=== PATIENT | female | born 1960 | race Caucasian/White ===

== ENCOUNTER → 2021-07-01 08:59 | Outpatient (CLI) | payer OTHER, SELFPAY | PROVIDERS: PCP Family Medicine; Visit Provider Nurse Practitioner | DX: Z20.822 Contact with and (suspected) exposure to COVID-19 (principal); U07.1 COVID-19 | CPT/HCPCS: C9803; U0003; U0005 ==

== ENCOUNTER 2025-05-16 15:10 | Emergency (ER) | payer MEDICARE, BC, SELFPAY ==
--- OUTSIDE RECORDS SUMMARY | 2019-04-13 06:45 | XMS_ITS | Encounter Summary ---
Author Organization [place] [address] Care Team Providers Care Medical Educator Name Role Phone Arabella Daniels Primary Care Provider [phone] JavedGustavo mcconnell MD Unavailable [phone] Encounter Details Date Type Department Care Team (Latest Contact Info) Description 2019 6:45 AM EDT Hospital Encounter [facility] [address] [place] [address] Left without seen Social History Tobacco Use Types Packs/Day Years Used Date Smoking Tobacco: Never Smokeless Tobacco: Never Alcohol Use Standard Drinks/Week Comments Never 0 (1 standard drink = 0.6 oz pur e alcohol) PHQ-2 Answer Date Recorded PHQ-2 Total Score 0 08/31/2024 Sexually Active Control Partners Comments Not Currently Surgical Male btl Comments No Sex and Gender Information Value Date Recorded Sex Assigned at Not on file Legal Sex Female 4:46 AM EDT Gender Identity Not on file Sexual Orientation Not on file COVID-19 Exposure Response Date Recorded In the last 10 days, have yo u been in contact with someone who was confirmed or suspected to have Coronavirus/COVID-19? No / Unsure 03/30/2023 8:02 AM EDT documented as of this encounter Functional Status * PHQ-9 Total Score Answer Date of Assessment Author 0 08/31/2024 8:08 AM Arabella Isidro RMA * Question Answer Date of Assessment Author Little interest or pleasure in doing things 0 08/31/2024 8:08 AM EST Alba Partida, RMYousif Feeling down, depressed, or hopeless 0 08/31/2024 8:08 AM EST Alba Partida, HARITHA PHQ-2 Total Score 0 08/31/2024 8:08 AM EST Alba Partida, RMYousif documented as of this encounter Plan of Treatment Upcoming Encounters Date Type Department Care Team (Late st Contact Info) Description 09/27/2025 10:30 AM EST Office Visit [facility] [address] [place] [address] Hermelindo Garcia MD [address] [place] [address] documented as of this encounter Goals Goal Patient Goal Type Associated Problems Recent Progress Patient-Stated? Author Maintain a healthy diet, exercise regularly and maintain an ideal body weight General No Panda Orozco MA documented as of this encounter Visit Diagnoses Not on filedocumented in this encounter Care Teams Medical Educator Relationship Specialty Start Date End Date Arabella Daniels [address] [place] [address] PCP - General Family Medicine 08/22/12 08/23/22 Gustavo Burt MD [address] [id number] Internal Medicine-Endocrinology, Diabetes & Metabolism 10/01/14 documented as of this encounter
--- OUTSIDE RECORDS SUMMARY | 2019-05-08 06:45 | XMS_ITS | Encounter Summary ---
Author Organization [place] [address] Care Team Providers Care Geothermal Field Technician Name Role Phone Arabella Daniels Primary Care Provider [phone] JavedGustavo mcconnell MD Unavailable [phone] Encounter Details Date Type Department Care Team (Latest Contact Info) Description 05/08/2019 6:45 AM EDT Hospital Encounter [facility] [...] EST Office Visit [facility] [address] [place] [address] Hermelindo Garcia MD [address] [place] [address] documented as of this encounter Goals Goal Patient Goal Type Associated Problems Recent Progress Patient-Stated? Author Maintain a healthy diet, exercise regularly and maintain an ideal body weight General No Panda Orozco MA documented as of this encounter Visit Diagnoses Not on filedocumented in this encounter Care Teams Geothermal Field Technician Relationship Specialty Start Date End Date Arabella Daniels [address] [place] [address] PCP - General Family Medicine 08/22/12 08/23/22 Gustavo Burt MD [address] [address] Internal Medicine-Endocrinology, Diabetes & Metabolism 10/01/14 documented as of this encounter
--- OUTSIDE RECORDS SUMMARY | 2025-03-19 10:15 | XMS_ITS | Encounter Summary ---
Author Organization [place] [address] Care Team Providers Care Batting Machine Operator Insulation Name Role Phone Gustavo Burt MD Unavailable [phone] Rashel Phelps Ud, MD Unavailable [phone] Rober Welch MD Primary Care Provider [phone] Mary Alice Rosales MD Unavailable Reason for Referral * Ultrasound (Routine) - Pending Review Specialty Diagnoses / Procedures Referred By Contshelton t Referred To Contact Radiology Diagnoses Epigastric abdominal pain Procedures US RIGHT UPPER QUADRANT Rober Welch MD [address] [place] [address] [place] [address] Phone: tel: fax: Referral ID Status Reason Start Date Expiration Date V isits Requested Visits Authorized [id number] Pending Review 03/19/2025 03/19/2026 1 1 Reason for Visit * Reason Comments Abdominal Pain Upper abdominal pain , worsened Tuesday Encounter Details Date Type Department Care Team (Late st Contact Info) Description 03/19/2025 10:15 AM EDT Office Visit [facility] [place] [address] [place] [id number] Rober Welch MD [address] [place] [address] [place] [id number] Epigastric abdominal pain (Primary Dx) Social History Tobacco Use Types Packs/Day Years [...] on file Sexual Orientation Not on file documented as of this encounter Last Filed Vital Signs Vital Sign Reading Time Taken Comments Blood Pressure 122/78 03/19/2025 10:05 AM EDT Pulse 66 03/19/2025 10:05 AM EDT Temperature 36.8 C (98.2 F) 03/19/2025 10:05 AM EDT Respiratory Rate 16 03/19/2025 10:0 5 AM EDT Oxygen Saturation 99% 03/19/2025 10: 05 AM EDT Inhaled Oxygen Concentration - - Weight 55.2 kg (121 lb 12.8 oz) 025 10:05 AM EDT Height 154.9 cm (5' 1 ) 03/19/2025 10:0 5 AM EDT Body Mass Index 23.01 03/19/2025 10:05 AM EDT documented in this encounter Progress Notes * Rober Welch MD - 03/19/2025 10:15 AM EDT Assessment & Plan 1. Epigastric pain - Symptoms include upper stomach pain, which has worsened over the past month, and floating stools without oil droplets. - Physical exam reveals tenderness in the middle of the abdomen. - Blood work will be conducted to assess pancreatic function, liver function, and electrolyte levels. A repeat ultrasound of the pancreas and gallbladder will be ordered. - Advised to follow a low-fat diet and maintain adequate hydration to manage symptoms. Assessment & Plan Epigastric abdominal pain Orders: LIPASE LEVEL; Future COMPREHENSIVE METABOLIC PANEL; Future US RIGHT UPPER QUADRANT; Future No follow-ups on file. Subjective Annia Figueroa is a 64 y.o. female Chief Complaint Patient presents with Abdominal Pain Upper abdominal pain , worsened Tuesday History of Present Illness The patient is a 64-year-old female who presents today for stomach pain. She has been experiencing intermittent upper abdominal pain for several years, which has recently become more severe and daily. The pain occasionally disrupts her sleep, particularly when she lies onher side or stomach. She recalls an episode of severe pain after consuming a pork roast dinner, which occurred within 20 minutes of eating. She reports no associated vomiting. Her stools continue to float but are not greasy as they were in the past. The color of her stools is normal, not granados or yellow. In 2013, she underwent an ultrasound of her gallbladder and pancreas due to the severity of the pain, accompanied by floating stools and the presence of oil droplets. At that time, her blood levels were slightly elevated, but she managed to cope with the condition. A colonoscopy performed a few months ago did not reveal any abnormalities. Despite taking Tums, she found no relief. Review of Systems Constitutional: Positive for activity change and fatigue. Negative for fever and unexpected weight change. Gastrointestinal: Positive for abdominal pain and nausea. Negative for blood in stool, constipation, diarrhea and vomiting. Objective Blood pressure 122/78, pulse 66, temperature 98.2 ??F (36.8 ??C), temperature source Tympanic, resp. rate 16, height 5' 1 (1.549 m), weight 121 lb 12.8 oz (55.2 kg), last menstrual period 02/02/2013, SpO2 99%, not currently . Body mass index is 23.01 kg/m??. Physical Exam Physical Exam Constitutional: General: She is not in acute distress. Appearance: She is not ill-appearing or toxic-appearing. Abdominal: General: There is no distension. Tenderness: There is abdominal tenderness. There is no right CVA tenderness, left CVA tenderness, guarding or rebound. Comments: Tenderness in the epigastric region, less tenderness on the right side. Neurological: General: No focal deficit present. Mental Status: She is alert and oriented to person, place, and time. Results The provider educated the patient (or legal medical field representative) on the use of the ambient listening artificial intelligence tool, [employer]. They were informed that this AI tool processes the conversation to generate a clinical note with the expected benefit of improved accuracy while achieving an improved encounter experience for the patient and provider.?The provider explained that the medical information captured by the AI tool including, but not limited to, diagnoses and treatment plan would be protected in accordance with applicable privacy laws and that all diagnoses and treatment decisions would be made by the provider. The provider explained that the note generated will be reviewed bythe provider for accuracy to minimize potential errors.? The patient was given an opportunity to ask questions and opt out of proceeding with the use of the AI tool. After being informed of such information, the patient (or legal medical field representative), and each individual in attendance with the patient, verbally consented to the use of the AI tool. * Christin Rivera - 03/19/2025 10:15 AM EDT Venipuncture in the right antecubital vein with 21 gauge needle, length 1 1/2 inch. documented in this encounter Plan of Treatment Upcoming Encounters Date Type Department Care Team (Late st Contact Info) Description 09/27/2025 10:30 AM EST Office Visit [facility] [address] [address] Hermelindo Garcia MD [address] [place] [address] documented as of this encounter Goals Goal Patient Goal Type Associated Problems Recent Progress Patient-Stated? Author Maintain a healthy diet, exercise regularly and maintain an ideal body weight General No Panda Orozco MA documented as of this encounter Procedures Procedure Name Priority Date/Time Associated Diagnosis Comments LIPASE LEVEL Routine 03/19/2025 10:23 AM EDT Epigastric abdominal pain COMPREHENSIVE METABOLIC PANEL Routine 03/19/2025 10:23 AM EDT Epigastric abdominal pain documented in this encounter Results * US RIGHT UPPER QUADRANT (03/26/2025 10:55 AM EDT) Anatomical Region Laterality Modality Abdomen Ultrasound 03/26/2025 10:5 5 AM EDT Impressions 03/26/2025 1:26 PM EDT Unremarkable right upper quadrant ultrasound. - Note: Radiology results need to be interpreted within a comprehensive clinical context. If you have questions about the radiology report, please contact the office of the ordering clinician. Narrative 03/26/2025 1:26 PM EDT US RIGHT UPPER QUADRANT, 03/26/2025 10:55 AM CLINICAL HISTORY: R10.13-Epigastric azgf-RID-23-CM. COMPARISON: CT 07/30/2014 PROCEDURE COMMENTS: Ultrasound examination of the right upper quadrant performed by the technologist. Sent to PACS along with tech notes for radiologist review. FINDINGS: Gallbladder: Normal. Robles's sign: Negative. Liver: Normal in size and echotexture. No focal lesion. Common bile duct: Measures 1.0 mm. (Normal is 6mm or less. If there has been cholecystectomy, normal is 10mm or less.) Pancreas: Visualized portions are normal. Other: Right kidney non-hydronephrotic. Procedure Note Walker Jimenez MD - 03/26/2025 US RIGHT UPPER QUADRANT, 03/26/2025 10:55 AM CLINICAL HISTORY: R10.13-Epigastric [id number]-CM. COMPARISON: CT 07/30/2014 PROCEDURE COMMENTS: Ultrasound examination of the right upper quadrantperformed by the technologist. Sent to PACS along with tech notes for radiologistreview. FINDINGS: Gallbladder: Normal. Robles's sign: Negative. Liver: Normal in size and echotexture. No focal lesion. Common bile duct: Measures 1.0 mm. (Normal is 6mm or less. If there hasbeen cholecystectomy, normal is 10mm or less.) Pancreas: Visualized portions are normal. Other: Right kidney non-hydronephrotic. IMPRESSION: Unremarkable right upper quadrant ultrasound. - Note: Radiology results need to be interpreted within a comprehensiveclinical context. If you have questions about the radiology report, please contactthe office of the ordering clinician. Rober Welch MD [facility] ORDERABLES Final Result * (ABNORMAL) COMPREHENSIVE METABOLIC PANEL (03/19/2025 10:23 AM EDT) Sodium 139 136 - 145 mmol/L 03/19/2025 3:43 PM EDT [facility] Potassium 5.2(H) 3.5 - 5.0 mmol/L 03/19/2025 3:43 PM EDT [facility] Chloride 104 98 - 107 mmol/L 03/19/2025 3:43 PM EDT [facility] Total CO2 25 22 - 29 mmol/L 03/19/2025 3:43 PM EDT [facility] Anion Gap 10 7 - 16 mmol/L 03/19/2025 3:43 PM EDT [facility] Calcium 9.6 8.8 - 10.4 mg/dL 03/19/2025 3:43 PM EDT [facility] Glucose Lvl 91 70 - 99 mg/dL 03/19/2025 3:43 PM EDT [facility] BUN 14 8 - 23 mg/dL 03/19/2025 3:43 PM EDT [facility] Creatinine 0.99 0.51 - 1.30 mg/dL 03/19/2025 3:43 PM EDT [facility] Albumin 4.5 3.2 - 4.6 gm/dL 03/19/2025 3:43 PM EDT [facility] Total Protein 7.2 6.4 - 8.3 gm/dL 03/19/2025 3:43 PM EDT [facility] Bili Total 1.0 0.2 - 1.3 mg/dL 03/19/2025 3:43 PM EDT [facility] ALT 10 <=41 U/L 03/19/2025 3:43 PM EDT [facility] AST 19 <=40 U/L 03/19/2025 3:43 PM EDT [facility] Alk Phos 83 36 - 123 U/L 03/19/2025 3:43 PM EDT [facility] eGFR (CKD-EPIcr 2020) 63 >=60 mL/min/1.7 3 m2 03/19/2025 3:43 PM EDT [facility] Comment:Estimated GFR was ca lculated using the CKD-EPIcr (2020) equation refit without race. The equation is recommended by the National Kidney Foundation - [place] [employer] Neph[employer] Task Force. Blood VENOUS BLOOD / Unknown Venipuncture / Unknown 03/19/2025 10:23 AM EDT 03/19/2025 10:23 AM EDT Rober Welch MD CHEMISTRY ORDERABLES Final Res ult Performing Organization Address [facility] Co de Phone Number [employer] [address] , [place] [address] * (ABNORMAL) LIPASE LEVEL (03/19/2025 10:23 AM EDT) Lipase Lvl 73(H) 13 - 60 U/L 03/19/2025 4:15 PM EDT [facility] Blood VENOUS BLOOD / Unknown Venipuncture / Unknown 03/19/2025 10:23 AM EDT 03/19/2025 10:23 AM EDT Rober Welch MD CHEMISTRY ORDERABLES Final Res ult Performing Organization Address [facility] de Phone Number [facility] [employer] [address] , [place] [id number] documented in this encounter Visit Diagnoses Diagnosis Epigastric abdominal pain- Primary Abdominal pain, epigastric Epigastric abdominal pain Abdominal pain, epigastric documented in this encounter Discontinued Medications Medication Sig Discontinue Reason Start Date End Da te sod sulf-pot chloride-mag sulf (SUTAB) 1.479-0.188- 0.225 gram Oral Tablet Take 12 Tablets by mouth Preprocedure for up to 1 dose. Take 1 kit (12 tablets twice) per physician instructions. Cancelled by 11/15/2024 03/19/2025 sodium,potassium,mag sulfates (SUPREP BOWEL PREP KIT) 17.5-3.13-1.6 gram Oral Recon SolnIndications:Scree laurita for colon cancer Take 1 kit per physician instructions Cancelled by 01/02/2025 03/19/2025 documented as of this encounter Care Teams Batting Machine Operator Insulation Relationship Specialty Start Date End Date Rober Welch MD [address] [place] [address] [place] [address] PCP - General Family Medicine 08/24/22 Gustavo Burt MD [address] [facility] [address] [place] [address] Internal Medicine-Endocrinology, Diabetes & Metabolism 10/01/14 Rashel Phelps Ud, MD [address] [place] [address] Internal Medicine-Nephrology 10/22/20 Mary Alice Rosales MD [address] [place] [address] Internal Medicine-Rheumatology 11/26/22 documented as of this encounter
--- OUTSIDE RECORDS SUMMARY | 2025-03-26 10:20 | XMS_ITS | Encounter Summary ---
Author Organization [place] [address] Care Team Providers Care Stitcher Utility Name Role Phone Gustavo Burt MD Unavailable [phone] Rashel Phelps Ud, MD Unavailable [phone] Rober Welch MD Primary Care Provider [phone] Mary Alice Rosales MD Unavailable Reason for Referral * Ultrasound (Routine) - Pending Review Specialty Diagnoses / Procedures Referred By Contac t Referred To Contact Radiology Diagnoses Epigastric abdominal pain Procedures US RIGHT UPPER QUADRANT Rober Welch MD [address] [place] [address] [place] [address] Phone: tel: fax: Referral ID Status Reason Start Date Expiration Date V isits Requested Visits Authorized [id number] Pending Review 03/19/2025 03/19/2026 1 1 Reason for Visit * Ultrasound (Routine) - Pending Review Specialty Diagnoses / Procedures Referred By Contac t Referred To Contact Radiology Diagnoses Epigastric abdominal pain Procedures US RIGHT UPPER QUADRANT Rober Welch MD [address] [place] [address] [place] [address] Phone: tel: fax: Referral ID Status Reason Start Date Expiration Date V isits Requested Visits Authorized [id number] Pending Review 03/19/2025 03/19/2026 1 1 Encounter Details Date Type Department Care Team (Latest Contact Info) Description 03/26/2025 10:20 AM EDT - 03/26/2025 11:59 PM EDT Hospital Encounter [facility] [address] [place] [address] Rober Welch MD [address] [facility] [address] [place], [place] [address] Epigastric abdominal pain Discharge Disposition: Home or Self Care Social History Tobacco Use Types Packs/Day Years [...] on file documented as of this encounter Medications at Time of Discharge acarbose (PRECOSE) 25 mg Oral TabletIndications:R eactive hypoglycemia TAKE ONE TABLET BY MOUTH THREE TIMES DAILY (WITH MEALS) 90 Tablet 1 01/15/2025 aspirin 81 mg Oral Tablet, Chewable Take 81 mg by mouth daily. EPINEPHrine (EPIPEN) 0.3 mg/0.3 mL Inj Auto-InjectorIndica tions:Bee sting allergy Inject 0.3 mL into the muscle as needed for Anaphylaxis. 2 Each 2 02/12/2025 fUROsemide (LASIX) 20 mg Oral Tablet TAKE ONE TABLET BY MOUTH ONCE 60 Tablet 09/22/2023 LEVOthyroxine (EUTHYROX) 88 mcg Oral TabletIndications:H ypothyroidism, unspecified type Take 1 Tablet by mouth daily. 90 Tablet 1 02/14/2025 pantoprazole (PROTONIX) 40 mg Oral Tablet, Delayed Release (E.C.)Indications:G astroesophageal reflux disease, unspecified whether esophagitis present Take 1 Tablet by mouth 2 times daily. 60 Tablet 11 02/12/2025 documented as of this encounter Discharge Disposition Disposition Code Departure Means Destination Home or Self Care documented in this encounter Plan of Treatment Upcoming Encounters Date Type Department Care Team (Late st Contact Info) Description 09/27/2025 10:30 AM EST Office Visit [facility] [address] [place] [address] Hermelindo Garcia MD [address] [place] [address] documented as of this encounter Goals Goal Patient Goal Type Associated Problems Recent Progress Patient-Stated? Author Maintain a healthy diet, exercise regularly and maintain an ideal body weight General No Panda Orozco MA documented as of this encounter Procedures Procedure Name Priority Date/Time Associated Diagnosis Comments US RIGHT UPPER QUADRANT Routine 03/26/2025 10:55 AM EDT Epigastric abdominal pain documented in [...] QUADRANT, 03/26/2025 10:55 AM CLINICAL HISTORY: R10.13-Epigastric quei-UXZ-06-CM. COMPARISON: CT 07/30/2014 PROCEDURE COMMENTS: Ultrasound examination [...] QUADRANT, 03/26/2025 10:55 AM CLINICAL HISTORY: R10.13-Epigastric [id number]-[id number]-CM. COMPARISON: CT 07/30/2014 PROCEDURE COMMENTS: Ultrasound examination [...] of the ordering clinician. Rober Welch MD IM US ORDERABLES Final Result documented in this encounter Visit Diagnoses Diagnosis Epigastric abdominal pain Abdominal pain, epigastric documented in this encounter Care Teams Stitcher Utility Relationship Specialty Start Date End Date Rober Welch MD [address] [place] [address] [place] [address] PCP - General Family Medicine 08/24/22 Gustavo Burt MD [address] [address] Internal Medicine-Endocrinology, Diabetes & Metabolism 10/01/14 Rashel Phelps Ud, MD [address] [place] [address] Internal Medicine-Nephrology 10/22/20 Mary Alice Rosales MD [address] [facility] [place] [address] Internal Medicine-Rheumatology 11/26/22 documented as of this encounter
--- OUTSIDE RECORDS SUMMARY | 2025-03-26 13:15 | XMS_ITS | Encounter Summary ---
Author Organization [place] [address] Care Team Providers Care Process Improvement Consultant Name Role Phone Gustavo Burt MD Unavailable [phone] Rashel Phelps Ud, MD Unavailable [phone] Rober Welch MD Primary Care Provider [phone] Mary Alice Rosales MD Unavailable Reason for Visit * Reason Comments Follow-up Encounter Details Date Type Department Care Team (Late st Contact Info) Description 03/26/2025 1:15 PM EDT Office Visit [facility] Dermatology [facility] [address] [facility] [address] [place] [address] Hermelindo Garcia MD [address] [place] [address] Encounter for screening for malignant neoplasm of skin (Primary Dx); Multiple benign melanocytic nevi; Lentigines; SK (seborrheic keratosis); Poikiloderma; History of nonmelanoma skin cancer; Arthropod bite, initial encounter; Sebaceous gland hyperplasia Social History Tobacco Use Types Packs/Day Years [...] on file documented as of this encounter Progress Notes * Hermelindo Garcia MD - 03/26/2025 1:15 PM EDT Chief Complaint: Chief Complaint Patient presents with ??? Follow-up HPI: Annia is a 64 y.o. female that is present for a 6 month fbse ( mohs Scc of left lower leg. 1 concerning spot on the rt abdomen. Recently bit my a tick. Denies fever, headaches or joint pains. She request a full skin exam. 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 Past Medical History: Past Medical History: Diagnosis Date ??? Anemia ??? Arthritis ??? Broken ankle, left, closed, initial encounter ??? Chronic headaches ??? Chronic kidney disease ??? Colon polyps ??? Depression ??? GERD (gastroesophageal reflux disease) ??? Hypothyroidism Surgical History: Past Surgical History: Procedure Laterality Date ??? BREAST BIOPSY 2006 left benign ??? CARPAL TUNNEL RELEASE 2005,2001 bilateral ??? COLONOSCOPY ??? DENTAL SURGERY 08/30/2024 root canal ??? SHOULDER SURGERY rotator cuff ??? SKIN GRAFT from [place], R thigh, L ankle ??? TUBAL LIGATION 1982 ??? UPPER GASTROINTESTINAL ENDOSCOPY Social History: Social History Tobacco Use ??? Smoking status: Never ??? Smokeless tobacco: Never Vaping Use ??? Vaping status: Never Used Substance Use Topics ??? Alcohol use: Never ??? Drug use: Never Family History: Family History Problem Relation Age of Onset ??? Diabetes Mother ??? High Blood Pressure Mother ??? Cancer Mother ??? Anemia Mother ??? Kidney Disease Mother ??? Heart Failure Mother CHF ??? Arthritis Mother ??? Heart Attack Father ??? Heart Disease Father ??? High Cholesterol Father ??? Hypertension Father ??? Stroke Father ??? High Blood Pressure Father ??? Diabetes Brother Don passed Sep 2023 due to complications, age 61 ??? Migraines Brother ??? Osteoarthritis Maternal Aunt ??? Colon Cancer Maternal Aunt ??? Cancer Maternal Aunt ??? Cancer Maternal Aunt ??? Cancer Maternal Aunt ??? Cancer Maternal Uncle ??? Anemia Maternal Grandmother ??? High Blood Pressure Sister ??? Cancer Maternal Uncle ??? Cancer Maternal Aunt ??? Arthritis Maternal Aunt ??? Cancer Maternal Aunt ??? Cancer Maternal Aunt Allergies: Allergies Allergen Reactions ??? Phenergan [Promethazine] Other (See Comments) Neurological problems Current Medications: Current Outpatient Medications Medication ??? acarbose (PRECOSE) 25 mg Oral Tablet ??? aspirin 81 mg Oral Tablet, Chewable ??? EPINEPHrine (EPIPEN) 0.3 mg/0.3 mL Inj Auto-Injector ??? fUROsemide (LASIX) 20 mg Oral Tablet ??? LEVOthyroxine (EUTHYROX) 88 mcg Oral Tablet ??? pantoprazole (PROTONIX) 40 mg Oral Tablet, Delayed Release (E.C.) No current facility-administered medications for this visit. Review of Systems: No other reported skin problems. Constitutional: no reported Fever, chills or unintended weight loss Eyes: no reported dry eyes/Sjogren's Ears/Nose/mouth/throat: no reported oral sores, no reported dry mouth C/V: no reported chest pain Resp: no reported SOB GI: no reported abd pain, no reported N/V : no reported pain with urination, no reported blood in urine M/S: no reported joint complaints, no reported arthralgias, no reported muscle weakness, no reported trouble brushing hair/standing up from seated position Neuro: no reported seizures, no reported LUQUE's Psych: no reported change in mood Endo: no reported weight gain/loss Heme/lymph: no reported easy bruising, no reported swollen glands/lymph nodes. No reported hx of clotting. Allergic/Immunologic: no reported symptoms of allergy No reported Raynaud symptoms Physical Exam: There were no vitals filed for this visit. General: WDWN: Normal Mood/Affect: Normal Orientation: Normal Examination of the following was performed and was normal, except as noted below: Psych/neuro, Scalp/hair, head/face, conjunctivae/eyelids, gums/teeth/lips, oral mucosa/tongue, Neck, axilla/chest, abdomen, back, right upper extremity, left upper extremity, Nails/digits, right lower extremity, left lower extremity, peripheral vascular and lymphatic. Please see A/P for relevant physical exam findings. - Did not perform exam of genitalia/groin/buttocks or of breasts per patient preference Diagnosis: 1. Encounter for screening for malignant neoplasm of skin 2. Multiple benign melanocytic nevi 3. Lentigines 4. SK (seborrheic keratosis) 5. Poikiloderma 6. History of nonmelanoma skin cancer 7. Arthropod bite, initial encounter 8. Sebaceous gland hyperplasia Assessment and Plan: Benign Nevi : regular, symmetrical, evenly-colored macules and papules located on the body throughout Plan: Counseling I counseled the patient regarding the following: Instructions: Monthly self-skin checks to monitor for any changes in moles are recommended. Reviewed ABCDE and Shirlene Flores warning signs and recommended evaluation if any moles change in size, shape or color; itch, burn or bleed. Recommended daily OTC sunscreen at least SPF 30 with reapplication and photoprotection measures Expectations: Benign Nevi are pigmented nests of cells within the skin. No treatment is necessary. Contact Office if: Any moles change in size, shape or color; itch, burn or bleed. Lentigines: reticulated light hampton macules in sun distribution Plan: Counseling I counseled the patient regarding the following: Skin Care: Lentigines can resolve with broad spectrum sunscreen, sun avoidance, bleaching creams, retinoids, chemical peels and laser. Expectations: Lentigines are benign pigmented lesions that occur on sun-exposed and sun-damaged skin. They are easily treatable. Seborrheic Keratoses : stuck-on, warty, greasy brown papules with pseudo-horn cysts located on the body throughout Plan: Counseling I counseled the patient regarding the following: Skin Care: Seborrheic Keratoses are benign. No treatment is necessary. Expectations: Seborrheic Keratoses are benign warty growths. Patients get more of them as they age. Poikiloderma Exam: hypopigmentation, hyperpigmentation, telangiectasias and atrophy well demarcated at sun exposed areas The patient was advised that this is a skin condition that consists of areas of hypopigmentation, hyperpigmentation, telangiectasias and atrophy. It is most frequently seen on the chest or the neck, characterized by red colored pigment on the skin that is commonly associated with sun damage. Sun protection was reviewed. Management options reviewed including observation vs topical retinoids vs IPL. Patient opted for observation at this time. History of NMSC: No evidence of recurrence, patient reassured Plan: Counseling. I counseled the patient regarding the following: Skin Care: Patients with a history of non-melanoma skin cancer should wear sunblock and sun protective clothing. Expectations: Scars from excisional sites of non-melanoma skin cancers should be monitored for any recurrences. Contact Office if: If the patient notices discoloration or a bump arising from a previously stable scar or any new lesions that are not healing. Arthropod bites Exam: edematous pink papule involving the right abdomen Reviewed diagnosis - Discussed to call if symptomatic. Sebaceous Hyperplasia : few mm, orange-yellow papules involving behind the right ear Plan: Counseling I counseled the patient regarding the following: Skin Care: Sebaceous Hyperplasia can be treated with electrodesiccation or laser. Expectations: Sebaceous Hyperplasia are benign, enlarged oil glands within the skin. Contact Office if: Sebaceous Hyperplasia fails to resolve with treatment. Skin cancer screening: - 0 concerning lesions found on examination - continue regular self skin exams and routine follow up in office as discussed - diligent photoprotective measures with daily use of SPF to face, arms/hands, exposed areas recommended Exam was performed in the presence of Mariaelena Guillen MA is acting as scribe for Hermelindo Garcia MD. Follow Up: 6 months or sooner PRN documented in this encounter Plan of Treatment Upcoming Encounters Date Type Department Care Team (Late st Contact Info) Description 09/27/2025 10:30 AM EST Office Visit [facility] [address] [facility] [address] [place] [address] Hermelindo Garcia MD [address] [place] [address] documented as of this encounter Goals Goal Patient Goal Type Associated Problems Recent Progress Patient-Stated? Author Maintain a healthy diet, exercise regularly and maintain an ideal body weight General No Panda Orozco MA documented as of this encounter Visit Diagnoses Diagnosis Encounter for screening for malignant neoplasm of skin- Primary Screening for malignant neoplasm of the skin Multiple benign melanocytic nevi Lentigines Other dyschromia SK (seborrheic keratosis) Other seborrheic keratosis Poikiloderma Other dyschromia History of nonmelanoma skin cancer Personal history of other malignant neoplasm of skin Arthropod bite, initial encounter Sebaceous gland hyperplasia Other specified disease of sebaceous glands documented in this encounter Care Teams Process Improvement Consultant Relationship Specialty Start Date End Date Rober Welch MD [address] [place] [address] [address] [place] [id number] PCP - General Family Medicine 08/24/22 Gustavo Burt MD [address] [address] Internal Medicine-Endocrinology, Diabetes & Metabolism 10/01/14 Rashel Phelps Ud, MD [address] [place] [address] Internal Medicine-Nephrology 10/22/20 Mary Alice Rosales MD [address] [place] [address] Internal Medicine-Rheumatology 11/26/22 documented as of this encounter
--- OUTSIDE RECORDS SUMMARY | 2025-04-15 10:59 | XMS_ITS | Encounter Summary ---
Author Organization [place] [address] Care Team Providers Care Generator Worker Name Role Phone Gustavo Burt MD Unavailable [phone] Rashel Phelps Ud, MD Unavailable [phone] Rober Welch MD Primary Care Provider Mary Alice Rosales MD Unavailable Reason for Visit * Nuclear Medicine (Routine) - Authorization Not Needed Specialty Diagnoses / Procedures Referred By Contac t Referred To Contact Radiology Diagnoses Abdominal pain, RUQ (right upper quadrant) Procedures NM HEPATOBILIARY W GBEF WO PHARMA NM HEPATOBILIARY W GBEF Rober Welch MD [address] [place] [address] [place] [address] Phone: tel: fax: Referral ID Status Reason Start Date Expiration Date Visits Requested Visits Authorized [id number] Authorization Not Needed 04/08/2025 04/08/2026 5 5 Encounter Details Date Type Department Care Team (Latest Contact Info) Description 04/15/2025 10:59 AM EDT - 04/15/2025 11:59 PM EDT Hospital Encounter [facility] [address] [place] [address] Rober Welch MD [address] [place] [address] [place] [address] Abdominal pain, RUQ (right upper quadrant) Discharge Disposition: Home or Self Care Social [...] 10:30 AM EST Office Visit [facility] [address] [facility] [address] [place] [id number] Hermelindo Garcia MD [address] [place] [address] documented as of this encounter Goals Goal Patient Goal Type Associated Problems Recent Progress Patient-Stated? Author Maintain a healthy diet, exercise regularly and maintain an ideal body weight General No Panda Orozco MA documented as of this encounter Procedures Procedure Name Priority Date/Time Associated Diagnosis Comments NM HEPATOBILIARY W GBEF WO PHARMA Routine 04/15/2025 12:55 PM EDT Abdominal pain, RUQ (right upper quadrant) documented in this encounter Results * NM HEPATOBILIARY W GBEF WO PHARMA (04/15/2025 12:55 PM EDT) Anatomical Region Laterality Modality Nuclear Medicine 04/15/2025 12:5 5 PM EDT Impressions 04/15/2025 12:57 PM EDT Normal hepatobiliary scan with a normal gallbladder ejection fraction. - Note: Radiology results need to be interpreted within a comprehensive clinical context. If you have questions about the radiology report, please contact the office of the ordering clinician. Narrative 04/15/2025 12:57 PM EDT NM HEPATOBILIARY WITH GBEF WO PHARMACOLOGIC AGENT, 04/15/2025 12:55 PM CLINICAL HISTORY: R10.11-Right upper quadrant [id number]. COMPARISON: None. PROCEDURE COMMENTS: Routine sequential planar hepatobiliary imaging with gallbladder ejection fraction estimation, using administration of orally administered caloric stimulant (usually Boost or Ensure) as recorded in EPIC. FINDINGS: Immediate images of the liver are normal. Normal demonstration of activity within the biliary tree, gallbladder, and small bowel. The EF is 80%. Normal is 35% or greater. Procedure Note Fernando Ontiveros MD - 04/15/2025 NM HEPATOBILIARY WITH GBEF WO PHARMACOLOGIC AGENT, 04/15/2025 12:55 PM CLINICAL HISTORY: R10.11-Right upper quadrant [id number]. COMPARISON: None. PROCEDURE COMMENTS: Routine sequential planar hepatobiliary imaging with gallbladder ejection fraction estimation, using administration of orally administered caloric stimulant (usually Boost or Ensure) as recorded inEPIC. FINDINGS: Immediate images of the liver are normal. Normal demonstration ofactivity within the biliary tree, gallbladder, and small bowel. The EF is 80%. Normal is 35% or greater. IMPRESSION: Normal hepatobiliary scan with a normal gallbladder ejection fraction. - Note: Radiology results need to be interpreted within a comprehensiveclinical context. If you have questions about the radiology report, please contactthe office of the ordering clinician. us Robre Welch MD [facility] NM ORDERABLES Final Result documented in this encounter Visit Diagnoses Diagnosis Abdominal pain, RUQ (right upper quadrant) Abdominal pain, right upper quadrant documented in this encounter Administered Medications Inactive Administered Medications - up to 1 most recent administrations Medication Order MAR Action Action Date Dose Rate Site Tc-99m mebrofenin (CHOLETEC) injection 6.2 millicurie 6.2 millicurie, Intravenous, ONCE PRN, 1 dose, Starting on Tue04/15/25 at 1114, Until Tue04/15/25 at 1115, Radiography/Imaging, Radiology Procedure, Administration dose must be within 10% of the ordered dose for radiopharmaceutical medications., Radiology Given 04/15/2025 11:15 AM EDT 6.2 millicuries documented in this encounter Orders Medications Ordered That Osito ht Not Have Been Administered Count Last Ordered Date First Ordered Date Tc-99m mebrofenin (CHOLETEC) injection 6.2 millicurie 1 04/15/2025 documented in this encounter Care Teams Generator Worker Relationship Specialty Start Date End Date Rober Welch MD [address] [place] [address] [place] [address] PCP - General Family Medicine 08/24/22 Gustavo Burt MD [address] [id number] Internal Medicine-Endocrinology, Diabetes & Metabolism 10/01/14 Rashel Phelps Ud, MD [address] [place] [address] Internal Medicine-Nephrology 10/22/20 Mary Alice Rosales MD [address] [place] [address] Internal Medicine-Rheumatology 11/26/22 documented as of this encounter
--- NOTE | 2025-05-16 15:18 | ED_ITS ---
<Statement entered by Giovana Crisostomo DO - 05/16/25 19:54> I was consulted by the MELY, and we discussed the complexity of problems being addressed. I approve the treatment and management plan for this patient's care in the emergency department, thus performing a substantial portion of the medical decision making. Giovana Crisostomo DO Discharge Plan Disposition Patient Disposition: Home, Self-Care Condition: Good Referrals Follow up/Referrals: Rober Welch MD [Primary Care Provider, Medical] - See instructions Activity Restrictions/Add. Instructions Additional Instructions/Restrictions: Please return to the emergency department with any worsening signs or symptoms. Please use your EpiPen as needed if stung by any other insect/bees. Please follow-up with your family doctor. Clinical Impressions Clinical Impression: Allergic reaction, Hx of insect sting Instructions Patient Instructions: DI for Insect Bites and Stings Print Language Print Language: Armenian Discharge ED Provider: Giovana Crisostomo General Adult HPI General Chief complaint: Allergic Reaction Stated complaint: stung by wasp,used Epi pen Time Seen by Provider: 05/16/25 15:15 Mode of Arrival: Ambulatory Source of Information: Patient Limitations: No Limitations History of Present Illness HPI narrative: 65-year-old female presents the emergency department after a wasp/insect sting to the right elbow, patient states that she has a family history of anaphylactic reaction, no personal history of anaphylactic reaction, been stung previously on the left knee, has been told to utilize EpiPen's , after every sting, patient was found today on the right elbow call, with EMS and who advised her to take EpiPen, patient was stung approxione 40 5 PM, took her EpiPen within 1 minute , patient denies any fever chills chest pain shortness of breath airway compromise, no nausea no vomiting no constipation no diarrhea, admits to pruritus around the area, no other area of erythema or rash, patient has urinary test intact, patient has past medical history consistent with hypothyroidism/GERD, initial triage vitals are unremarkable. Please note that above description of symptoms, in this electronic medical record under categorization of recalled from ER triage doctor by RN are reflective of an initial nursing assessment, however, is not reflective of my full history and physical exam that was personally taken and clarified. Consequentially, this preceding description of symptoms, which may include the patient's categorized chief complaint in the EMR, do not reflect my personal clinical impression, and the ultimate description of history of present illness and patient stated complaints should be deferred to this section of the note. Unless stated otherwise or congruent with this section of the note, additional signs, symptoms, or incongruence should be interpreted as inaccurate with my clinical impression. Onset (ago): hour(s) Related Data Allergies Allergy/AdvReac Type Severity Reaction Status Date / Time promethazine (From Phenergan) Allergy Other Verified 05/16/25 15:38 PFSH [facility] Disclaimer: The information contained in this section may have been updated after the patient was seen, as this information can be updated by other users. Social History Smoking Status: Never smoker alcohol intake: never current occupational status: other Travel in the last 8 weeks?: None ROS Obtained: Yes All systems reviewed & no additional complaints except as documented Physical Exam General General appearance: alert and in no apparent distress Head Head exam: atraumatic and normocephalic Eye Eye exam: Present PERRL and EOMI ENT ENT exam: Present mucous membranes moist Neck Neck exam: Present normal inspection Chest Chest inspection: Present normal inspection and symmetric chest wall rise Respiratory Respiratory exam: Present normal lung sounds bilaterally; Absent respiratory distress Cardiovascular Cardiovascular exam: Present regular rate and normal rhythm Abdominal Exam Abdominal exam: Present soft; Absent tenderness Extremities Exam Extremities exam: Present normal inspection Neurological Exam Neurological exam: Present alert and oriented X3 Psychiatric Psychiatric exam: Present normal affect Skin Skin exam: Present warm, dry, erythema and other (Minimal area of erythema to the right elbow, no urticaria,) Medical Decision Making Medical Records Medical records reviewed: Yes I reviewed the patient's medical records. Screening: Per USPSTF and CDC recommendations, given the prevalence of disease in our region, it is our hospital?s policy to screen for HIV and viral Hepatitis for all patients aged 18 and over and those with ongoing risk factors. Igor Inquiry Pt receiving controlled substance: No Vital Signs: 05/16/25 15:27 05/16/25 15:34 Temperature 98.1 F 98.1 F Temperature Source Oral Oral Pulse Rate 85 Pulse Rate [Right] 85 Respiratory Rate 16 16 Blood Pressure 151/89 H Blood Pressure [Left Arm] 151/89 H Blood Pressure Mean [Left Arm] 109 Blood Pressure Source Automatic Cuff Blood Pressure Source [Left Arm] Automatic Cuff Blood Pressure Position Supine Blood Pressure Position [Left Arm] Supine 02 Sat by Pulse Oximetry 97 97 Oxygen Delivery Method Room Air Room Air Medical Decision Narrative: 65-year-old female presents the emergency department with a wasp sting, see HPI for detail past medical history. I discussed this patient's case with the attending physician Dr. Crisostomo she saw and examined the patient as well. Low concern for angioedema/anaphylaxis, local bee sting/insect bite reaction, patient's already taken epi pen approximately 2 hours ago, will monitor patient the emergency department for 1 hour for any other signs or symptoms concerning for acute allergic reaction/anaphylaxis. Patient voiced understanding and agreed with current treatment plan. She is hemodynamically stable upon initial examination. Reexamination of the patient after 3-hour observation period, patient has remained hemodynamically stable throughout her time in the emergency department, no airway Carmize, no shortness of breath, no other acute signs or symptoms. Patient given strict ED return precautions, patient voiced understanding and agreement with the current treatment plan/discharge plan, she has EpiPen's available at home for any other acute symptomatology. Critical Care Critical Care Time Critical Care Time: No
[2025-05-16 15:27] VITALS: BP 151/89; PULSE 85; RESP 16; TEMP 36.7; O2SAT 97; BMI 22.6
--- OUTSIDE RECORDS SUMMARY | 2025-05-16 15:30 | XMS_ITS | Encounter Summary ---
Author Organization [place] [address] Care Team Providers Care Meteorological Aide Name Role Phone Gustavo Burt MD Unavailable [phone] Rashel Phelps Ud, MD Unavailable [phone] Garry Welch MD Primary Care Provider Mary Alice Rosales MD Unavailable Reason for Visit * Reason Onset Date Comments Symptoms (Only Use If Pt Pushes Back On Scheduli ng A Visit) 05/16/2025 Wasp sting Encounter Details Date Type Department Care Team (Late st Contact Info) Description 05/16/2025 Nurse Triage SEP [facility] [address] [place] [id number] Garry Welch MD [address] [place] [address] JE[place]ETH BELLO [address] Social History Tobacco Use Types Packs/Day Years [...] on file documented as of this encounter Miscellaneous Notes * Telephone Encounter - Alba Partida RMA - 05/16/2025 3:20 PM EDT I called pt lmtcb , I contacted her she went to the ER * Telephone Encounter - Garry Welch MD - 05/16/2025 3:15 PM EDT Would recommend going to the ER for observation or waiting in the ER waiting room in the event of asevere allergic reaction. We only have 1 EpiPen on hand and if she had a severe anaphylactic reaction we have limited supplies to respond to her needs as opposed to an emergency room setting * Telephone Encounter - Alba Partida RMA - 05/16/2025 3:09 PM EDT Advice ? * Telephone Encounter - Lenore Sims RN - 05/16/2025 2:20 PM EDT Nurse Triage Call -Chief Complaint: stung by wasp 1347 & used epi called 911 declined ED. -Reported by: Patient -Vitals: No vitals obtained on this call -Disposition per protocol: Call 911 -Follow up/Concerns: Pt will go to ED. Reason for Disposition Life-threatening reaction in past to sting (anaphylaxis) and < 2 hours since sting Protocols used: Bee or Yellow Jacket Sting-A-OH * Telephone Encounter - Juan F Hightower CCMA - 05/16/2025 2:17 PM EDT Select the most appropriate reason for this telephone message: Symptoms Call Who is reporting the symptoms: Patient What symptom(s) is the patient experiencing: stung by a wasp today. Highly allergic. She called squad. They wanted her to go to the er. She declined. She wants to know if she can just sit in the office waiting room and have the front end ui developer keep an eye on her just in case the epi pen wears off. How long have symptoms been present: today Has the patient been seen for this:No If no, was an appointment/E-Visit offered/suggested? No, Sentto Triage Has the patient tried anything to relieve the symptoms and did it help: Yes epi pen If pain, what level on scale 1-10 (10 being the greatest): No pain Desired Outcome: Advice Pharmacy & Location:n/a Return Method of Communication: Phone Call Was patient transferred to Nurse Triage for additional help? Yes (remember to route this message [facility] Nurse Triage [place] # [id number]) Additional Information: N/A documented in this encounter Plan of Treatment Upcoming Encounters Date Type Department Care Team (Late st Contact Info) Description 09/27/2025 10:30 AM EST Office Visit SEP Dermatology [facility] [address] [phone] Hermelindo Garcia MD [address] [place] [address] documented as of this encounter Goals Goal Patient Goal Type Associated Problems Recent Progress Patient-Stated? Author Maintain a healthy diet, exercise regularly and maintain an ideal body weight General No Panda Orozco MA documented as of this encounter Visit Diagnoses Not on filedocumented in this encounter Care Teams Meteorological Aide Relationship Specialty Start Date End Date Garry Welch MD [address] [facility] [place] [address] PCP - General Family Medicine 08/24/22 Gustavo Burt MD [address] [phone] Internal Medicine-Endocrinology, Diabetes & Metabolism 10/01/14 Rashel Phelps Ud, MD [address] [place] [address] Internal Medicine-Nephrology 10/22/20 Mary Alice Rosales MD [address] [place] [address] Internal Medicine-Rheumatology 11/26/22 documented as of this encounter
--- OUTSIDE RECORDS SUMMARY | 2025-05-16 15:30 | XMS_ITS | Encounter Summary ---
Author Organization [facility] Address [address] [place] [address] Care Team Providers Care Senior Catering Sales Manager Name Role Phone Gustavo Burt MD Unavailable [phone] Rashel Phelps Ud, MD Unavailable [phone] Rober Welch MD Primary Care Provider [phone] Mary Alice Rosales MD Unavailable Encounter Details Date Type Department Care Team (Late st Contact Info) Description 02/05/2025 Results Follow-Up [facility] [address] [place] [address] Jakub Lorenzo MD [address] [place] [address] [facility] ORDER Social History Tobacco Use Types Packs/Day Years [...] on file documented as of this encounter Plan of Treatment Upcoming Encounters Date Type Department Care Team (Late st Contact Info) Description 09/27/2025 10:30 AM EST Office Visit SEP Dermatology [facility] [address] [place] [address] Hermelindo Garcia MD [address] [facility], [place] [id number] documented as of this encounter Goals Goal Patient Goal Type Associated Problems Recent Progress Patient-Stated? Author Maintain a healthy diet, exercise regularly and maintain an ideal body weight General No Panda Orozco MA documented as of this encounter Visit Diagnoses Not on filedocumented in this encounter Care Teams Senior Catering Sales Manager Relationship Specialty Start Date End Date Rober Welch MD [address] [place] [address] PCP - General Family Medicine 08/24/22 Gustavo Burt MD [address] [facility] [address] [place] [address] Internal Medicine-Endocrinology, Diabetes & Metabolism 10/01/14 Rashel Phelps Ud, MD [address] [place] [address] Internal Medicine-Nephrology 10/22/20 Mary Alice Rosales MD [address] [facility] [place] [address] Internal Medicine-Rheumatology 11/26/22 documented as of this encounter
--- OUTSIDE RECORDS SUMMARY | 2025-05-16 15:30 | XMS_ITS | Encounter Summary ---
Author Organization [place] [address] Care Team Providers Care Animal Care Service Worker Name Role Phone Gustavo Burt MD Unavailable [phone] Rashel Phelps Ud, MD Unavailable [phone] Garry Welch MD Primary Care Provider [phone] Mary Alice Rosales MD Unavailable Encounter Details Date Type Department Care Team (Latest Contact Info) Description 04/15/2025 Results Follow-Up SEP Bry [facility] [place] [phone] Garry Welch MD [address] [place] [address] [place] [address] [place] [facility] Social History Tobacco Use Types Packs/Day Years [...] as of this encounter Progress Notes * Garry Welch MD - 04/15/2025 1:03 PM EDT Her HIDA scan was normal, if she is still having pain please let me know and I will refer her to GI documented in this encounter Plan of Treatment Upcoming Encounters Date Type Department Care Team (Late st Contact Info) Description 09/27/2025 10:30 AM EST Office Visit SEP Dermatology [facility] [address] [place] [address] Hermelindo Garcia MD [address] [facility] [place] [id number] documented as of this encounter Goals Goal Patient Goal Type Associated Problems Recent Progress Patient-Stated? Author Maintain a healthy diet, exercise regularly and maintain an ideal body weight General No Panda Orozco MA documented as of this encounter Visit Diagnoses Not on filedocumented in this encounter Care Teams Animal Care Service Worker Relationship Specialty Start Date End Date Garry Welch MD [address] [place] [address] [place] [address] PCP - General Family Medicine 08/24/22 Gustavo Burt MD [address] [facility] [address] [place] [address] Internal Medicine-Endocrinology, Diabetes & Metabolism 10/01/14 Rashel Phelps Ud, MD [address] [place] [address] Internal Medicine-Nephrology 10/22/20 Mary Alice Rosales MD [address] [place] [address] Internal Medicine-Rheumatology 11/26/22 documented as of this encounter
--- OUTSIDE RECORDS SUMMARY | 2025-05-16 15:30 | XMS_ITS | Encounter Summary ---
Author Organization [place] [address] Care Team Providers Care Health Psychologist Name Role Phone Gustavo Burt MD Unavailable [phone] Rashel hPelps Ud, MD Unavailable [phone] Rober Welch MD Primary Care Provider Mary Alice Rosales MD Unavailable Encounter Details Date Type Department Care Team (Late st Contact Info) Description 04/08/2025 Orders Only SEP Bry [facility] [place] [phone] Rober Welch MD [address] [place] [address] [address] [place] JE[place] [address] Abdominal pain, RUQ (right upper quadrant) (Primary Dx) Social History Tobacco Use Types [...] EST Office Visit SEP Dermatology [facility] [address] [place] [phone] Hermelindo Garcia MD [address] [place] [facility] [address] [place] [facility], [place] [id number] documented as of this encounter Goals Goal Patient Goal Type Associated Problems Recent Progress Patient-Stated? Author Maintain a healthy diet, exercise regularly and maintain an ideal body weight General No Panda Orozco MA documented as of this encounter Visit Diagnoses Diagnosis Abdominal pain, RUQ (right upper quadrant)- Primary Abdominal pain, right upper quadrant documented in this encounter Care Teams Health Psychologist Relationship Specialty Start Date End Date Rober Welch MD [address] [place] [address] [place] [address] PCP - General Family Medicine 08/24/22 Gustavo Burt MD [address] [facility] [address] [place] [address] Internal Medicine-Endocrinology, Diabetes & Metabolism 10/01/14 Rashel Phelps Ud, MD [address] [place] [address] Internal Medicine-Nephrology 10/22/20 Mary Alice Rosales MD [address] [facility] [address] Internal Medicine-Rheumatology 11/26/22 documented as of this encounter
--- OUTSIDE RECORDS SUMMARY | 2025-05-16 15:30 | XMS_ITS | Encounter Summary ---
Author Organization [facility] [place] [address] Care Team Providers Care Train Planner Name Role Phone Gustavo Burt MD Unavailable [phone] Rashel Phelps Ud, MD Unavailable [phone] Garry Welch MD Primary Care Provider [phone] Mary Alice Rosales MD Unavailable Encounter Details Date Type Department Care Team (Latest Contact Info) Description 03/25/2025 Travel Social History Tobacco Use Types Packs/Day Years [...] 10:30 AM EST Office Visit SEP Dermatology [facility] [address] [facility] [address] [place] [address] Hermelindo Garcia MD [address] [place] [address] documented as of this encounter Goals Goal Patient Goal Type Associated Problems Recent Progress Patient-Stated? Author Maintain a healthy diet, exercise regularly and maintain an ideal body weight General No Panda Orozco MA documented as of this encounter Visit Diagnoses Not on filedocumented in this encounter Care Teams Train Planner Relationship Specialty Start Date End Date Garry Welch MD [address] [place] [address] [place] [address] PCP - General Family Medicine 08/24/22 Gustavo Burt MD [address] [facility] [address] [place] [address] Internal Medicine-Endocrinology, Diabetes & Metabolism 10/01/14 Rashel Phelps Ud, MD [address] [place] [address] Internal Medicine-Nephrology 10/22/20 Mary Alice Rosales MD [address] [place] [address] Internal Medicine-Rheumatology 11/26/22 documented as of this encounter
--- OUTSIDE RECORDS SUMMARY | 2025-05-16 15:30 | XMS_ITS | Encounter Summary ---
Author Organization [place] [address] Care Team Providers Care Parts Expediter Name Role Phone Gustavo Burt MD Unavailable [phone] Rashel Phelps Ud, MD Unavailable [phone] Garry Welch MD Primary Care Provider Mary Alice Rosales MD Unavailable Encounter Details Date Type Department Care Team (Latest Contact Info) Description 03/19/2025 Results Follow-Up SEP Bry [facility] [place] [phone] Garry Welch MD [address] [place] [address] [address] [place] [address] LIPASE LEVEL, COMPREHENSIVE METABOLIC PANEL, RIGHT UPPER QUADRANT Social History Tobacco Use Types Packs/Day Years [...] Progress Notes * Garry Welch MD - 03/26/2025 1:33 PM EDT Her right upper quadrant ultrasound was normal. Gallbladder was normal with no gallstones. If she still having issues with upset stomach let me know and we can order a HIDA scan to test her gallbladder functioning * Garry Welch MD - 03/19/2025 4:18 PM EDT Her lipase level was elevated concerning for pancreatitis. Would recommend that she follow a low-fat diet for the next few days and drink plenty of fluids like we discussed at today's visit. Her potassium was borderline elevated. Would recommend she avoid high potassium foods such as bananas, nuts,or berries. Again drinking plenty water is helpful. Her liver enzymes were otherwise normal. She can follow-up with the ultrasound like we discussed to make sure there is no gallbladder involvement contributing to her pancreatitis. The symptoms should gradually improve over the next few days as long as she follows a low-fat diet documented in this encounter Plan of Treatment Upcoming Encounters Date Type Department Care Team (Late st Contact Info) Description 09/27/2025 10:30 AM EST Office Visit SEP Dermatology [facility] [address] [place] [address] [phone] Hermelindo Garcia MD [address] [place] [address] documented as of this encounter Goals Goal Patient Goal Type Associated Problems Recent Progress Patient-Stated? Author Maintain a healthy diet, exercise regularly and maintain an ideal body weight General No Panda Orozco MA documented as of this encounter Visit Diagnoses Not on filedocumented in this encounter Care Teams Parts Expediter Relationship Specialty Start Date End Date Garry Welch MD [address] [place] [address] [place] [address] PCP - General Family Medicine 08/24/22 Gustavo Burt MD [address] [facility] [address] [place] [address] Internal Medicine-Endocrinology, Diabetes & Metabolism 10/01/14 Rashel Phelps Ud, MD [address] [place] [address] Internal Medicine-Nephrology 10/22/20 Mary Alice Rosales MD [address] [place] [address] Internal Medicine-Rheumatology 11/26/22 documented as of this encounter
--- OUTSIDE RECORDS SUMMARY | 2025-05-16 15:30 | XMS_ITS | Clinical Summary ---
Author Organization [facility] Address [address] [place] [address] Phone Care Team Providers Care Employment Adjudicator Name Role Phone Gustavo Burt MD Unavailable [phone] Rashel Phelps Ud, MD Unavailable [phone] Garry Welch MD Primary Care Provider [phone] Mary Alice Rosales MD Unavailable Allergies Active Allergy Reactions Criticality Noted Date Comments Promethazine Other (See Comments) Medium 08/22/2012 Neurological problems Medications aspirin 81 mg Oral Tablet, Chewable Take 81 mg by mouth daily. Active fUROsemide (LASIX) 20 mg Oral Tablet TAKE ONE TABLET BY MOUTH ONCE 60 Tablet 09/22/2023 Active acarbose (PRECOSE) 25 mg Oral TabletIndications :Reactive hypoglycemia TAKE ONE TABLET BY MOUTH THREE TIMES DAILY (WITH MEALS) 90 Tablet 1 01/15/2025 Active EPINEPHrine (EPIPEN) 0.3 mg/0.3 mL Inj Auto-InjectorIndi cations:Bee sting allergy Inject 0.3 mL into the muscle as needed for Anaphylaxis . 2 Each 2 02/12/2025 Active pantoprazole (PROTONIX) 40 mg Oral Tablet, Delayed Release (E.C.)Indications :Gastroesophageal reflux disease, unspecified whether esophagitis present Take 1 Tablet by mouth 2 times daily. 60 Tablet 11 02/12/2025 Active LEVOthyroxine (EUTHYROX) 88 mcg Oral TabletIndications :Hypothyroidism, unspecified type Take 1 Tablet by mouth daily. 90 Tablet 1 02/14/2025 Active Active Problems Problem Noted Date Diagnosed Date Chronic left shoulder pain 12/08/2022 Osteopenia of the elderly 11/25/2022 Overview (11/25/2022): - postmenopausal - DEXA scan 2017 normal - DEXA scan 03/17- showed osteopenia, We did discuss primary treatment measures of dietary calcium, Vitamin D, and the importance of weight bearing and aerobic exercise. We discussed that her target calcium dietary intake should be 1200mg per day, to use supplements as needed not to exceed 300mg per dose. We discussed that her target Vitamin D level should be > 32, to use Vitamin D supplements (2000 IU of Vitamin D3 per day) as needed to reach her target dose. Thumb pain, left 11/25/2022 Overview (11/25/2022): - symptoms improved with steroid injection and PT - continue thumb brace, tylenol upto 4000 mg PRN daily and diclofenac gel QID PRN Chronic arthritis 11/25/2022 emt intermediate current use of systemic steroids 11/25 Overview (06/28/2024): # Injections - left 1 [facility]- kenalog 20 mg- 03/08/22 - left 1 [facility] -kenalog 20 mg- 06/28/24 The risks of corticosteroids were reviewed by me with the patient, including (but not limited to) weight gain, osteoporosis acceleration, bone fractures, a-vascular necrosis, elevated blood sugars, and cataract acceleration. Encounter for medication monitoring 11/25/2022 Overview (11/25/2022): - The risks of corticosteroids were reviewed by me with the patient, including (but not limited to) weight gain, osteoporosis acceleration, bone fractures, a- vascular necrosis, elevated blood sugars, and cataract acceleration. A medication information sheet from the [place] [employer] (ACR) was provided. # Monitoring parameters - DEXA scan- Osteopenia 03/11/22 History of adenomatous polyp of colon 07/14/2022 Echeverria's esophagus without dysplasia 12/16/2021 Gastroesophageal reflux dise ase with esophagitis without hemorrhage 12/16/2021 Assessment & Plan (08/31/2024 9:03 AM EST): Orders: COMPREHENSIVE METABOLIC PANEL; Future CBC WITH DIFF; Future Asymptomatic at this time, well controlled with medication Atrophic gastritis without hemorrhage 12/16/2021 Family history of colon cancer 12/16/2021 Diffuse spasm of esophagus 12/18/2019 History of colonic polyps 12/18/2019 Assessment & Plan (08/31/2024 9:03 AM EST): Patient informed she is due for colonoscopy in spring; will schedule with GI sometime in spring 2024 when due Vitamin D deficiency 02/27/2014 Overview (02/27/2014): Followed by Endocrinology. 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 Hypothyroidism 08/22/2012 Overview (02/27/2014): Followed by Endocrinology. Assessment & Plan (08/31/2024 9:03 AM EST): Orders: COMPREHENSIVE METABOLIC PANEL; Future TSH REFLEX; Future LIPID PANEL REFLEX; Future Asymptomatic at this time, feels well controlled on medications -Follow-up thyroid labs for further adjustments Resolved Problems Problem Noted Date Diagnosed Date Resolved Date Adenomatous polyp of colon 12/16/2021 1 11/01/2023 Family history of colonic polyps 12/16/2021 08/31/2024 Polyp of colon 12/18/2019 08/31/2024 Encounters Date Type Department Care Team Description 05/16/2025 Telephone [facility]P [facility] [address] [place] [phone] Garry Welch MD Patient Returning Call (Informed of PCP message ) 05/16/2025 Nurse Triage SEP [facility] [address] [place] [phone] Garry Welch MD 04/15/2025 10:59 AM EDT - 04/15/2025 11:59 PM EDT Hospital Encounter [facility] [address] [place] [address] Garry Welch MD Abdominal pain, RUQ (right upper quadrant) Discharge Disposition: Home or Self Care 04/15/2025 Results Follow-Up [address] [place] [phone] Garry Welch MD NM HEPATOBILIARY W GBEF WO PHARMA 04/08/2025 Orders Only [address] [place] [phone] Garry Welch MD Abdominal pain, RUQ (right upper quadrant) (Primary Dx) 03/26/2025 1:15 PM EDT Office Visit [facility] [address] [place] [address] Hermelindo Garcia MD Encounter for screening for malignant neoplasm of skin (Primary Dx); Multiple benign melanocytic nevi; Lentigines; SK (seborrheic keratosis); Poikiloderma; History of nonmelanoma skin cancer; Arthropod bite, initial encounter; Sebaceous gland hyperplasia 03/26/2025 10:20 AM EDT - 03/26/2025 11:59 PM EDT Hospital Encounter [facility] [address] [place] [address] Garry Welch MD Epigastric abdominal pain Discharge Disposition: Home or Self Care 03/25/2025 Travel 03/19/2025 10:15 AM EDT Office Visit [facility] [address] [place] [phone] Garry Welch MD Epigastric abdominal pain (Primary Dx) 03/19/2025 Results Follow-Up [address] [place] [phone] Garry Welch MD LIPASE LEVEL, COMPREHENSIVE METABOLIC PANEL, RIGHT UPPER QUADRANT 02/14/[address] [facility] [address] [place] [address] Gustavo Burt MD Medication Refill from Last 3 Months Surgical History Surgery Date Site/Laterality Comments SHOULDER SURGERY rotator cuff CARPAL TUNNEL RELEASE bilateral BREAST BIOPSY 09/26/2005 - 09/25/2006 left benign SKIN GRAFT from [facility], R thigh, L ankle TUBAL LIGATION 1983 DENTAL SURGERY 08/30/2024 root canal COLONOSCOPY UPPER GASTROINTESTINAL ENDOSCOPY Medical History Medical History Date Comments Hypothyroidism Chronic headaches Depression Colon polyps Anemia Broken ankle, left, closed, initial encounter Arthritis GERD (gastroesophageal reflux disease) Chronic kidney disease Family History Medical History Relation Name Comments Diabetes Brother Sonu Ascencio passed Sep 2023 due to complications, age 61 Migraines Brother Sonu Arellano Heart Attack Father Sonu Arellano Heart Disease Father Sonu Arellano High Blood Pressure Father Sonu Arellano High Cholesterol Father Sonu Arellano Hypertension Father Sonu Arellano Stroke Father Sonu Arellano Colon Cancer Maternal Aunt 1 Erin Brookens Osteoarthritis Maternal Aunt 1 Erin Brookens Cancer Maternal Aunt 2 Anni Diffenderfer Cancer Maternal Aunt 3 Erin Holtry Cancer Maternal Aunt 4 Rachel Cancer Maternal Aunt 5 Anni Diffenderfer Arthritis Maternal Aunt 6 Erin Holtry Cancer Maternal Aunt 6 Erin Holtry Cancer Maternal Aunt 7 Rachel Anemia Maternal Grandmother Phoebe Brookens Cancer Maternal Uncle 1 Ed Brookens Cancer Maternal Uncle 2 Ed Brookens Anemia Mother Tiara Knisely Arthritis Mother Tiara Knisely Cancer Mother Tiara Knisely Diabetes Mother Tiara Knisely Heart Failure Mother Tiara Knisely CHF High Blood Pressure Mother Tiara Knisely Kidney Disease Mother Tiara Knisely High Blood Pressure Sister Joan Carvalho Relation Name Status Comments Brother Sonu Arellano Father Sonu Arellano Maternal Aunt 1 Erin Brookens Maternal Aunt 2 Anni Diffenderfer Maternal Aunt 3 Erin Holtry Maternal Aunt 4 Rachel Maternal Aunt 5 Anni Diffenderfer Alive Maternal Aunt 6 Erin Holtry Alive Maternal Aunt 7 Rachel Alive Maternal Grandmother Phoebe Brookens Maternal Uncle 1 Ed Brookens Maternal Uncle 2 Ed Brookens Alive Mother Tiara Knisely Sister Joan Sanchezl Social History Tobacco Use Types Packs/Day Years Used Date Smoking Tobacco: Never Smokeless Tobacco: Never Tobacco Cessation:Counseling Given: Not Answered Alcohol Use Standard Drinks/Week Comments Never 0 [...] on file Sexual Orientation Not on file Obstetrics History Para Term AB IAB SAB Ectopic Multiple Livin g Live Births 2 2 1 2 2 Date Outcome GA Total Labor Labor/2nd/3rd Weight Sex Type Anes PTL Radha A1 A5 Name Clin Para Vag-S pont N Living Complications:None Term Vag-S pont N Living Complications:None Last Filed Vital Signs Vital Sign Reading [...] Mass Index 23.01 03/19/2025 10:05 AM EDT Plan of Treatment Upcoming Encounters Date Type Department Care Team (Late st Contact Info) Description 09/27/2025 10:30 AM EST Office Visit [facility] D[facility]at[facility] [address] [address] Hermelindo Garcia MD [address] [place] [address] Health Maintenance Due Date Last Done Comments Wellness Exam Medicare 1963 Cologuard 2005 FIT 2005 Sigmoidoscopy 2005 Virtual Colonography 2005 Pneumococcal Vaccine 50+ (1 of 1 - PCV) 2010 Zoster (1 of 2) 2010 COVID-19 Vaccine ( season) 2024 01/26/2021, 12/29/2020 Influenza Vaccine (#1) 2025 Breast Cancer Screening 05/15/2026 05/15/20, 03/30/2023, 03/11/2022, Additional history exists Pap Smear 09/07/2027 09/07/2024, 05/27, 02/06/2019, Additional history exists Cervical Cancer Screening 09/07/2029 HPV/Pap Cotest 09/07/2029 09/07/2024 Colon Cancer Screening 01/24/2030 Colonoscopy 01/24/2030 01/25/2025, 12/18/2019 DTaP/TDaP/Td (2 - Td or Tdap) 02/19/2032 02/18/2022 Hepatitis C Screening Completed 08/24/2022 Bone Density Screening Completed , 03/11/2022, 06/20/2018 Hepatitis B Vaccine Aged Out No longe r eligible based on patient's age to complete this topic Meningococcal B Vaccine Aged Out No l onger eligible based on patient's age to complete this topic Goals Goal Patient Goal Type Associated Problems Recent Progress Patient-Stated? Author Maintain a healthy diet, exercise regularly and maintain an ideal body weight General No Panda Orozco, PURNIMA Procedures Procedure Name Priority Date/Time Associated Diagnosis Comments NM HEPATOBILIARY W GBEF WO PHARMA Routine 04/15/2025 12:55 PM EDT Abdominal pain, RUQ (right upper quadrant) US RIGHT UPPER QUADRANT Routine 03/26/2025 10:55 AM EDT Epigastric abdominal pain COMPREHENSIVE METABOLIC PANEL Routine 03/19/2025 10:23 AM EDT Epigastric abdominal pain LIPASE LEVEL Routine 03/19/2025 10:23 AM EDT Epigastric abdominal pain COLONOSCOPY Routine 01/25/2025 9:23 AM EDT History of adenomatous polyp of colon POSTAL TRANSPORTATION CLERK CYTOLOGY REQUEST (PAP ONLY) Routine 09/07/2024 9:13 AM EST Pap smear for cervical cancer screening MM MAMMO DIGITAL ANTONIA SCREEN BILAT Routine 05/15/2024 9:59 AM EDT Encounter for screening mammogram for malignant neoplasm of breast DX BONE DENSITY AXIAL SKELETON Routine 03/24/2023 8:47 AM EDT Osteopenia of the elderly Post-menopausal HCV ANTIBODY SCREEN W/ REFLEX Routine 08/24/2022 2:42 PM EST Need for hepatitis C screening test from Last 3 Months or Most Recently Relevant to Health Maintenance Results * NM HEPATOBILIARY W GBEF WO [...] 12:55 PM CLINICAL HISTORY: R10.11-Right upper quadrant [id number]. COMPARISON: None. PROCEDURE COMMENTS: Routine sequential planar [...] 12:55 PM CLINICAL HISTORY: R10.11-Right upper quadrant [id number]. COMPARISON: None. PROCEDURE COMMENTS: Routine sequential planar [...] please contactthe office of the ordering clinician. Garry Welch MD G NM ORDERABLES Final Result * US RIGHT UPPER QUADRANT (03/26/2025 10:55 [...] QUADRANT, 03/26/2025 10:55 AM CLINICAL HISTORY: R10.13-Epigastric [id number]-CM. COMPARISON: CT 07/30/2014 PROCEDURE COMMENTS: Ultrasound examination [...] QUADRANT, 03/26/2025 10:55 AM CLINICAL HISTORY: R10.13-Epigastric [id number]-[id number]-20-CM. COMPARISON: CT 07/30/2014 PROCEDURE COMMENTS: Ultrasound examination [...] please contactthe office of the ordering clinician. Garry Welch MD IMG US ORDERABLES Final Result * (ABNORMAL) LIPASE LEVEL (03/19/2025 10:23 AM EDT) Lipase Lvl 73(H) 13 - 60 U/L 03/19/2025 4:15 PM EDT [facility] Blood VENOUS BLOOD / Unknown Venipuncture / Unknown 03/19/2025 10:23 AM EDT 03/19/2025 10:23 AM EDT Garry Welch MD CHEMISTRY ORDERABLES Final Res ult [facility] [address] [address] , [place] [address] * (ABNORMAL) COMPREHENSIVE METABOLIC PANEL (03/19/2025 10:23 [...] 03/19/2025 3:43 PM EDT [facility] Albumin 4.5 3.2 - 4.6 gm/dL 03/19/2025 3:43 PM EDT [facility] Total Protein 7.2 6.4 - 8.3 gm/dL 03/19/2025 3:43 PM EDT [facility] Bili Total 1.0 0.2 - 1.3 mg/dL 03/19/2025 3:43 PM EDT [facility] ALT 10 <=41 U/L 03/19/2025 3:43 PM EDT [facility] AST 19 <=40 U/L 03/19/2025 3:43 PM EDT [facility] Alk Phos 83 36 - 123 U/L 03/19/2025 3:43 PM EDT [facility] eGFR (CKD-EPIcr 2020) 63 >=60 mL/min/1.7 3 m2 03/19/2025 3:43 PM EDT [facility] Comment:Estimated GFR was ca lculated using the CKD-EPIcr (2020) equation refit without race. The equation is recommended by the National Kidney Foundation - [place] [employer] Task Force. Blood VENOUS BLOOD / Unknown Venipuncture / Unknown 03/19/2025 10:23 AM EDT 03/19/2025 10:23 AM EDT us Garry Welch MD CHEMISTRY ORDERABLES Final Res ult [facility] [address] , [place] [address] * COLONOSCOPY (01/25/2025 9:23 AM EDT) Anatomical Region Laterality Modality Endoscopy Narrative 01/25/2025 9:26 AM EDT Table formatting from the original result was not included. Findings Multiple diverticula of mild severity in the ascending colon, descending colon and sigmoid colon; no bleeding was observed The mucosa of the colon and terminal ileum was normal. Recommendation Repeat colonoscopy in 5 years, due: 01/24/2030 Pre-Procedure Diagnosis / Indication Personal history of colon polyps Family history of colon cancer/polyps Post-Procedure Diagnosis Personal history of colon polyps Family history of colon cancer/polyps Staff Staff Role No Staff Documented Medications See Anesthesia Record. Preprocedure A history and physical has been performed, and patient medication allergies have been reviewed. The patient's tolerance of previous anesthesia has been reviewed. The risks and benefits of the procedure and the sedation options and risks were discussed with the patient. All questions were answered and informed consent obtained. ASA 2 - Patient with mild systemic disease Details of the Procedure The patient underwent monitored anesthesia care, which was administered by an anesthesia professional. The patient's blood pressure, heart rate, level of consciousness, oxygen, respirations, ECG and ETCO2 were monitored throughout the procedure. A digital rectal exam was performed. The scope was introduced through the anus and advanced to the terminal ileum. Retroflexion was performed in the rectum. Bowel prep was adequate. The patient experienced no blood loss. The procedure was not difficult. The patient tolerated the procedure well. There were no apparent adverse events. Patient provided education and educated on specific discharge instructions. Patient educated on medications given during the procedure and new medications for discharge. Patient verbalizes understanding of discharge education. Patient stable and awaiting transport for discharge. Events Procedure Events Event Event Time ENDO SCOPE IN TIME 01/25/2025 9:03 AM ENDO SCOPE OUT TIME 01/25/2025 9:06 AM ENDO SCOPE IN TIME 01/25/2025 9:11 AM ENDO CECUM REACHED 01/25/2025 9:15 AM ENDO SCOPE WITHDRAW BEGIN 01/25/2025 9:15 AM TSG LUME TI REACHED 01/25/2025 9:16 AM ENDO SCOPE OUT TIME 01/25/2025 9:23 AM Specimens ID Type Source Tests Collected by Time 1 : Tissue Esophagus TSG PATHOLOGY ORDER Jakub Lorenzo MD 01/25/2025 0907 Jakub Lorenzo MD ENDOSCOPY PROCEDURE OR DERABLES Final Result * POSTAL TRANSPORTATION CLERK CYTOLOGY REQUEST (PAP ONLY) (09/07/2024 9:13 AM EST) CASE REPORT Gynecologic Cytology Report Case: [id number] Authorizing Provider: Suellen Zhong DO Collected: 09/07/2024 0913 Ordering Location: [facility] Received: 09/07/2024 0913 First Screen: Tg Jolly, BRANDON Specimen: LIQUID-BASED PAP - CERVICAL/ENDOCERV ICAL, Cervix, Endocervical 09/11/2024 10:51 AM EST [facility] PAP FINAL DIAGNOSIS Negative for intraepithelial lesion or malignancy 09/11/2024 10:51 AM EST [facility] at 1051 EST MICROSCOPIC DESCRIPTION Microscopic examination is performed and the findings corroborate the diagnosis. 09/11/2024 10:51 AM EST [facility] PAP SMEAR ADEQUACY Satisfactory for evaluation 09/11/2024 10:51 AM EST [facility] ENDOCERVICAL T-ZONE Transformation Zone Absent. This is not unusual in a post-menopausal woman. 09/11/2024 10:51 AM EST [facility] EMBEDDED IMAGES 10:51 AM EST [facility] PAP DISCLAIMER The Pap Smear is a screening test that aids in the detection of cervical cancer and cancer precursors. Both false positive and false negative results can occur. The test should be used at regular intervals, and positive results should be confirmed before definitive therapy. Processed using the ThinPrep [employer] Automated cytology screening device (UB.). 09/11/2024 10:51 AM EST [facility] Thin Prep ENDOCERVICAL STRUCTURE / Unknown 09/07/2024 9:13 AM EST 09/07/2024 9:13 AM EST us Suellen Zhong DO CYTOLOGY ORDERABLES Final Re sult [facility] [address] [place] [id number] * MM MAMMO DIGITAL ANTONIA SCREEN BILAT (05/15/2024 9:59 AM EDT) Anatomical Region Laterality Modality Breast Bilateral Mammography 05/15/2024 9:59 AM EDT Impressions 05/16/2024 7:55 AM EDT Negative ([id number]) RECOMMENDATION: Routine Screening Mammogram in 1 Year COMMENTS: Narrative 05/16/2024 7:55 AM EDT EXAM: MM MAMMO DIGITAL ANTONIA SCREEN BILAT EXAM DATE: 05/15/2024 9:59 AM INDICATION: Z12.31-Encounter for screening mammogram for malignant neoplasm of [id number]-[id number]-56-CM COMPARISON STUDIES: Compared with prior studies the most recent being 2022 TISSUE DENSITY: The breasts are heterogeneously dense, which may obscure small masses. FINDINGS: No mammographic evidence of malignancy. Procedure Note Giovanny Bain MD - 05/16/2024 EXAM: MM MAMMO DIGITAL ANTONIA SCREEN BILAT EXAM DATE: 05/15/2024 9:59 AM INDICATION: Z12.31-Encounter for screening mammogram for malignantneoplasm of [id number]-AQI-41-CM COMPARISON STUDIES: Compared with prior studies the most recent [id number] TISSUE DENSITY: The breasts are heterogeneously dense, which may obscuresmall masses. FINDINGS: No mammographic evidence of malignancy. IMPRESSION: Negative ([id number]) RECOMMENDATION: Routine Screening Mammogram in 1 Year COMMENTS: us Garry Welch MD [facility] ORDERABLES Fin al Result * DX BONE DENSITY AXIAL SKELETON (03/24/2023 8:47 AM EDT) Anatomical Region Laterality Modality Dexa Scan 03/24/2023 Narrative 03/24/2023 2:57 PM EDT Indication: The patient is a post-menopausal female under age 65 with clinical risk factors for an osteoporotic fracture that requires a bone density assessment. Study was performed on [email or web address] 5. Bone Density: Region BMD T-score Z-score Femoral Neck (Left) 0.648 -1.8 -0.4 Total Hip (Left) 0.792 -1.2 -0.1 1/3 Radius (Left) 0.720 0.4 1.9 World Health Organization criteria for BMD interpretation classify patients as: Normal (T-score at or above -1.0), Low Bone Density (T-score between -1.0 and -2.5), or Osteoporotic (T-score at or below -2.5). T Scores are reported in Postmenopausal women and in men age 50 and older. Z-scores are reported in females prior to menopause and in males younger than age 50. 10-year Fracture Risk(1): Major Osteoporotic Fracture 15% Hip Fracture 1.8% Reported Risk Factors: [place] (), Neck BMD=0.648, BMI=23.9, previous fracture (1) FRAX(R) Version 3.08. Fracture probability calculated for an untreated patient. Fracture probability may be lower if the patient has received treatment. Previous Exams: Region Date Age BMD T-score BMD Change Total Hip(Left) 03/24/2023 62 0.792 -1.2 -0.9% 03/11/2022 61 0.799 -1.2 -6.6%* 06/20/2018 58 0.855 -0.7 1/3 Forearm(Left) 03/24/2023 62 0.720 0.4 -1.3% 03/11/2022 61 0.730 0.6 -1.4% 06/20/2018 58 0.740 0.8 *Denotes significance at 95% confidence level, LSC for AP Spine = 0.032g/cm2, LSC for Total Hip = 0.024 g/cm2, LSC for Distal 1/3 Radius = 0.026 g/cm2, site specific LSC for Total Hip = 0.022 g/cm2 BMD is shown in g/cm2 and BMD Change indicates change vs previous BMD Clinical Information Provided by Patient: Has had a low trauma fracture Has taken a prescription medication that prevents/treats osteoporosis in the last year. Has used or is currently using the following medications: Calcium, Vitamin D, Diuretic, Thyroid medication, PPI, oral HRT Has had or currently has the following medical conditions: Back pain, Vitamin D Insufficiency, Depression Patient maximum height was 61.0 Menopause Age: 55 Patient is Postmenopausal. Has low body mass. Interpretation: Bone mineral density is in the low bone density range. A minimum of two years may be required between bone density studies due to inherent testing precision limitations. Intervals between BMD testing should be determined according to each patient's clinical status: typically one year after initiation or change of therapy is appropriate, with longer intervals once therapeutic effect is established. The left hip bone mineral density is not significantly changed since last exam. Although not approved for monitoring therapy the forearm bone mineral density is not significantly changed since the last exam. Patient's FRAX score indicates that the patient is at no increased risk for a fragility fracture in the next 10 years. Patient's FRAX score is included in the body of this report. The National Osteoporosis Foundation recommends treating patients with FRAX scores of greater than or equal to 3% for hip fracture or greater than or equal to 20% for major osteoporotic fracture. Reported by: Luz Brown PA-C, CCD on 03/24/2023 9:13:00 AM. Mary Alice Rosales MD IMG DEXA ORDERABLES Final Result * HEPATITIS C ANTIBODY - SCREENING (08/24/2022 2:42 PM EST) Hep C Ab Non-Reactiv e Non-Reacti ve 08/24/2022 8:00 PM EST [facility] Blood VENOUS BLOOD / Unknown Venipuncture / Unknown 08/24/2022 2:42 PM EST 08/24/2022 2:42 PM EST Garry Welch MD HEMATOLOGY ORDERABLES Final Re sult [facility] [address], [place] [address] from Last 3 Months or Most Recently Relevant to Health Maintenance Insurance [facility] [place] PART A AND B [facility] Member Subscriber Plan / Payer (Ef fective 2003-Present) Name:Annia Figueroa Relation to Subscriber:Self Name:Annia Figueroa Payer ID:[id number] (NAIC) Group ID:[id number] Type:Not on file Address: [address] [place] [id number] MEDICARE [place] PART A AND B [facility] PPO Member Subscriber Plan / Payer (Ef fective 2003-Present) Name:Annia Figueroa Relation to Subscriber:Self Name:Annia Figueroa Payer ID:[id number] (NAIC) Group ID:[id number] Type:Not on file Address: [address] [place] [facility] Care Teams Employment Adjudicator Relationship Specialty Start Date End Date Garry Welch MD [address] [facility] [place] [address] PCP - General Family Medicine 08/24/22 Gustavo Burt MD [address] [facility] [address] [place] [address] Internal Medicine-Endocrinology, Diabetes & Metabolism 10/01/14 Rashel Phelps Ud, MD [address] [facility] [place] [address] Internal Medicine-Nephrology 10/22/20 Mary Alice Rosales MD [address] [facility] [place] [id number] Internal Medicine-Rheumatology 11/26/22
--- OUTSIDE RECORDS SUMMARY | 2025-05-16 15:30 | XMS_ITS | Clinical Summary ---
Author Organization [facility] Address [address] [place] [id number] Care Team Providers Care Gear Shaper Name Role Phone Staff, Non Primary Care Provider Unavailabl e Source Comments This information has been disclosed to you from confidential records protectedfrom disclosure by state law. You shall make no further disclosure of thisinformation without the specific, written, and informed release of theindividual to whom it pertains, or as otherwise permitted by law. A generalauthorization for the release of medical or other information is not sufficientfor the purposes of therelease of HIV test results or diagnoses. [id number] Allergies Active Allergy Reactions Criticality Noted Date Comments Promethazine 10/11/2012 tingling Medications levothyroxine (SYNTHROID) 75 MCG tablet Take 75 mcg by mouth daily. Active Active Problems No known active problems Family History Relation Status Comments Father Mother Alive Social History Tobacco Use Types Packs/Day Years Used Date Smoking Tobacco: Never Alcohol Use Standard Drinks/Week Comments No 0 (1 standard drink = 0.6 oz pur e alcohol) Comments No Sex and Gender Information Value Date Recorded Sex Assigned at Not on file Legal Sex Female 11:59 PM EST Gender Identity Not on file Sexual Orientation Not on file Last Filed Vital Signs Vital Sign Reading Time Taken Comments Blood Pressure 132/63 10/11/2012 2:30 PM EST Pulse 80 10/11/2012 2:07 PM EST Temperature 36.5 C (97.7 F) 10/11/2012 2:42 PM EST Respiratory Rate 18 10/11/2012 2:42 PM EST Oxygen Saturation 100% 10/11/2012 2:07 PM EST Inhaled Oxygen Concentration 100% 10/11/2012 2 :07 PM EST Weight 52.2 kg (115 lb) 10/11/2012 1:06 PM EST Height 165.1 cm (5' 5 ) 10/11/2012 1:06 PM EST Body Mass Index 19.14 10/11/2012 1:06 PM EST Plan of Treatment Not on [place] [address] [place] [address] Care Teams Gear Shaper Relationship Specialty Start Date End Date Staff, Non PCP - General 10/11/12
[2025-05-16 15:32] VITALS: BP 110/70; PULSE 78; RESP 16; O2SAT 97
[2025-05-16 15:34] VITALS: BP 151/89; PULSE 85; RESP 16; TEMP 36.7; O2SAT 97
[2025-05-16 16:53] VITALS: BP 116/73; PULSE 82; RESP 15; TEMP 36.8; O2SAT 98
== END 2025-05-16 16:57 | disposition home or self-care (01) ==
PROVIDERS: Emergency Provider Student in an Organized Health Care Education/Training Program; PCP Family Medicine
DX: T63.461A Toxic effect of venom of wasps, accidental (unintentional), initial encounter (principal)
CPT/HCPCS: 99282